=== PATIENT | female | born 1975 | race Caucasian/White ===

== ENCOUNTER 2018-02-19 13:50 | Emergency (ER) | payer SELFPAY ==
[2018-02-19 14:10] VITALS: BP 106/75
--- NOTE | 2018-02-19 14:29 | UC ---
Respiratory Complaint HPI - HPI Summary HPI Summary: Loss of voice for about 3 days. This started with scratchy throat and then she lost her voice. No fever or rash or GI complaints. SHe has had ear pressure and symptoms. She denies other ENT medical problems. - History of Current Complaint Chief Complaint: UCRespiratory Stated Complaint: SORE THROAT, EARS,LOSS OF VOICE Time Seen by Provider: 02/19/18 14:02 Hx Obtained From: Patient Hx Last Menstrual Period: N/A Onset/Duration: Gradual Onset, Lasting Days Timing: Constant Severity Initially: Moderate Severity Currently: Moderate Pain Intensity: 2 Aggravating Factors: Nothing Alleviating Factors: Nothing Associated Signs And Symptoms: Positive: URI, Nasal Congestion, Hoarseness - Allergies/Home Medications Allergies/Adverse Reactions: Allergies Allergy/AdvReac Type Severity Reaction Status Date / Time danazol Allergy Palpitation Verified 02/19/18 14:03 s loratadine [From Claritin-D] Allergy Rash Verified 02/19/18 14:03 Penicillins Allergy Anaphylatic Verified 02/19/18 14:03 Shock pseudoephedrine Allergy Rash Verified 02/19/18 14:03 [From Claritin-D] Sulfa (Sulfonamide Allergy Rash Verified 02/19/18 14:03 Antibiotics) Home Medications: Home Medications NK [No Home Medications Reported] 02/19/18 [History Confirmed 02/19/18] PMH/Surg Hx/FS Hx/Imm Hx Previously Healthy: No - fibromyalgia. - Surgical History Surgical History: Yes Surgery Procedure, Year, and Place: TONSILLECTOMY 1982, LT KNEE SURGERY 1991, CSECTION 2006, HYSTERECTOMY 2007. LAPROSCOPIC--2005 - Family History Known Family History: Positive: Other - no voice related history. - Social History Alcohol Use: Occasionally Substance Use Type: None Smoking Status (MU): Current Every Day Smoker Type: Cigarettes Amount Used/How Often: 3 DAILY Length of Time of Smoking/Using Tobacco: APPROX 20 YRS Have You Smoked in the Last Year: Yes - Immunization History Most Recent Tetanus Shot: utd Review of Systems ENT: Sore Throat, Ear Ache, Sinus Congestion All Other Systems Reviewed And Are Negative: Yes Physical Exam Triage Information Reviewed: Yes Appearance: Well-Appearing, No Pain Distress, Well-Nourished Vital Signs: Initial Vital Signs Temp 98.2 F 02/19/18 14:04 Pulse 93 02/19/18 14:04 Resp 16 02/19/18 14:04 BP 106/75 02/19/18 14:04 Pulse Ox 100 02/19/18 14:04 Vital Signs Reviewed: Yes Eyes: Positive: Conjunctiva Clear ENT: Positive: Normal ENT inspection, Pharynx normal, Pharyngeal erythema, Nasal congestion, Nasal drainage, Hoarse voice. Negative: TMs normal, TM bulging, TM dull, TM red, Tonsillar swelling, Tonsillar exudate Neck: Positive: Supple, Nontender, No Lymphadenopathy Respiratory: Positive: Lungs clear, Normal breath sounds, No respiratory distress, No accessory muscle use. Negative: Respiratory distress, Decreased breath sounds, Accessory muscle use, Crackles, Rhonchi, Stridor Cardiovascular: Positive: No Murmur, Pulses Normal, Brisk Capillary Refill Abdomen Description: Positive: No Organomegaly, Soft. Negative: Distended, Guarding Musculoskeletal: Positive: Strength Intact, ROM Intact, No Edema Neurological: Positive: Alert, Muscle Tone Normal. Negative: Fatigued Psychological: Positive: Age Appropriate Behavior Skin: Negative: rashes UC Diagnostic Evaluation - Laboratory O2 Sat by Pulse Oximetry: 100 Respiratory Course/Dx - Differential Dx/Diagnosis Provider Diagnoses: laryngitis. Discharge - Sign-Out/Discharge Documenting (check all that apply): Patient Departure - Discharge Plan Condition: Good Disposition: HOME Patient Education Materials: Laryngitis (ED) Forms: *Work Release Referrals: Monique Cross MD [Primary Care Provider] - - Billing Disposition and Condition Condition: GOOD Disposition: Home
== END 2018-02-19 14:30 | disposition home or self-care (01) ==
LOC: UCCORT 13:50
DX: J37.0 Chronic laryngitis (principal); Z88.0 Allergy status to penicillin; Z88.1 Allergy status to other antibiotic agents; Z88.8 Allergy status to other drugs, medicaments and biological substances; F17.210 Nicotine dependence, cigarettes, uncomplicated
CPT/HCPCS: 99201; G0463